=== PATIENT | female | born 1950 | race Caucasian/White ===

== ENCOUNTER 2019-05-30 08:06 | Emergency (ER) | payer MEDICARE ==
[2019-05-30] MEDS ORDERED: SODIUM CHLORIDE 0.9% 1000ML 1,000 ML IV ONE (08:25)
[2019-05-30] MEDS ORDERED: DEXAMETHASONE SOD PHOSPHATE 10MG/ML 1ML VIAL ONE (08:31)
[2019-05-30] MEDS ORDERED: CEFTRIAXONE SODIUM 1 GM ONE (08:31)
[2019-05-30] MEDS ORDERED: IPRATROPIUM/ALBUTEROL SULFATE 3 ML SOLUTION IH ONE (08:34)
[2019-05-30 08:44] LABS: CREATININE 0.7 mg/dL (0.5-1.5); POTASSIUM 3.3 mmol/L (3.5-5.1)
[2019-05-30 08:46] LABS: BASOPHILS % (AUTO) 0.7 % (0.0-5.0); EOSINOPHILS % (AUTO) 1.9 % (0.0-8.0); HEMATOCRIT 39.2 % (36-48); LYMPHOCYTES % (AUTO) 15.6 % (21.0-51.0); MEAN CORPUSCULAR HEMOGLOBIN 30.1 pg (27.0-33.0); MEAN CORPUSCULAR HGB CONC 33.7 g/dL (32.0-36.0); MEAN CORPUSCULAR VOLUME 89.5 fL (79-99); MONOCYTES % (AUTO) 10.1 % (3.0-13.0); NEUTROPHILS % (AUTO) 71.4 % (40.0-77.0); PLATELET COUNT (AUTO) 224 K/uL (130-400); RED BLOOD CELL COUNT(AUTO) 4.38 MIL/uL (4.00-5.50); RED CELL DISTRIBUTION WIDTH 12.7 % (11.0-15.5); WHITE BLOOD COUNT (AUTO) 5.8 K/uL (4.8-10.8)
== END 2019-05-30 10:20 | disposition home or self-care (01) ==
LOC: EDH 08:06
DX: J20.9 Acute bronchitis, unspecified (principal); I10 Essential (primary) hypertension; E78.00 Pure hypercholesterolemia, unspecified; Z90.49 Acquired absence of other specified parts of digestive tract; Z90.710 Acquired absence of both cervix and uterus; Z72.0 Tobacco use
CPT/HCPCS: 36415; 71046; 80048; 85025; 87804 ×2; 94640; 96374; 96375; 99284; J0696; J1100; J7030

== ENCOUNTER 2020-02-28 10:39 | Emergency (ER) | payer MEDICARE ==
[2020-02-28] MEDS ORDERED: ASPIRIN 325 MG TABLET ONE ×2 (11:07→12:26)
[2020-02-28 11:18] LABS: BASOPHILS % (AUTO) 0.6 % (0.0-5.0); EOSINOPHILS % (AUTO) 0.9 % (0.0-8.0); HEMATOCRIT 39.1 % (36-48); LYMPHOCYTES % (AUTO) 25.1 % (21.0-51.0); MEAN CORPUSCULAR HEMOGLOBIN 31.2 pg (27.0-33.0); MEAN CORPUSCULAR VOLUME 91.8 fL (79-99); MONOCYTES % (AUTO) 5.8 % (3.0-13.0); NEUTROPHILS % (AUTO) 67.3 % (40.0-77.0); PLATELET COUNT (AUTO) 286 K/uL (130-400); RED BLOOD CELL COUNT(AUTO) 4.26 MIL/uL (4.00-5.50); RED CELL DISTRIBUTION WIDTH 12.2 % (11.0-15.5); WHITE BLOOD COUNT (AUTO) 6.5 K/uL (4.8-10.8)
[2020-02-28 11:26] LABS: INR 0.94 (0.85-1.15); PARTIAL THROMBOPLASTIN TIME 20.2 SEC (26.3-35.5); PROTHROMBIN TIME 10.2 SEC (9.6-11.6)
[2020-02-28 11:43] LABS: ALBUMIN 3.7 g/dL (3.5-5.0); BILIRUBIN,TOTAL 0.5 mg/dL (0.2-1.0); CREATININE 0.8 mg/dL (0.5-1.5); TOTAL PROTEIN, SERUM 6.9 g/dL (6.0-8.3)
[2020-02-28 11:47] LABS: POTASSIUM 2.9 mmol/L (3.5-5.1)
[2020-02-28 12:17] LABS: APPEARANCE,URINE Clear (CLEAR); BILIRUBIN,URINE Negative (NEGATIVE); COLOR,URINE Yellow (YELLOW); GLUCOSE, URINE (UA) Negative (NEGATIVE); KETONES,URINE Negative (NEGATIVE); LEUKOCYTE ESTERASE ,URINE Negative (NEGATIVE); NITRATE,URINE Negative (NEGATIVE); OCCULT BLOOD,URINE Negative (NEGATIVE); PROTEIN,URINE Negative (NEGATIVE); UROBILINOGEN,URINE 0.2 mg/dL (0.2-1.0)
[2020-02-28] MEDS ORDERED: POTASSIUM CHLORIDE 20 MEQ ERTAB PO ONE (12:27)
[2020-02-28] MEDS ORDERED: POTASSIUM BICARB/CIT AC 25 MEQ TABLET.EFF ONE (12:28)
== END 2020-02-28 13:19 | disposition home or self-care (01) ==
LOC: EDH 10:39
DX: R00.2 Palpitations (principal); E78.00 Pure hypercholesterolemia, unspecified; E87.6 Hypokalemia; I10 Essential (primary) hypertension; Z90.49 Acquired absence of other specified parts of digestive tract; Z90.710 Acquired absence of both cervix and uterus; Z87.891 Personal history of nicotine dependence
CPT/HCPCS: 36415; 71045; 80053; 81003; 82550; 84484; 85025; 85610; 85730; 93005

== ENCOUNTER 2022-07-08 10:12 | Emergency (ER) | payer MEDICARE ==
[~2022-07-08] VITALS: Ht 157.5 cm; Wt 59.4 kg
[2022-07-08] MEDS ORDERED: ACETAMINOPHEN WITH CODEINE 1 TAB TAB PO ONE (12:00)
[2022-07-08] MEDS ORDERED: MORPHINE 4 MG SYG IM ONE (12:30)
[2022-07-08] MEDS ORDERED: TRAM50TA4 PO (12:35)
[2022-07-08 12:46] VITALS: BP 113/83
== END 2022-07-08 13:11 | disposition home or self-care (01) ==
LOC: EDH 10:12
DX: S92.252A Displaced fracture of navicular [scaphoid] of left foot, initial encounter for closed fracture (principal); S52.122A Displaced fracture of head of left radius, initial encounter for closed fracture; W19.XXXA Unspecified fall, initial encounter; Y93.89 Activity, other specified; Y92.89 Other specified places as the place of occurrence of the external cause; Y99.8 Other external cause status; I10 Essential (primary) hypertension; E78.00 Pure hypercholesterolemia, unspecified; H40.9 Unspecified glaucoma
CPT/HCPCS: 99284; 29105; 73100 ×2; 73070 ×2; 73090; 96372; J2270

== ENCOUNTER → 2023-07-26 | Outpatient (CLI) | payer MEDICARE ==
[~2023-07-26] MED LIST: TRAM50TA4 PO
== END | disposition home or self-care (01) ==
LOC: SHCH 10:48
PROVIDERS: ATTEND Internal Medicine Cardiovascular Disease
DX: I35.8 Other nonrheumatic aortic valve disorders (principal); R07.9 Chest pain, unspecified
CPT/HCPCS: 93306

== ENCOUNTER → 2023-08-10 | Outpatient (CLI) | payer MEDICARE ==
[2023-08-10] MEDS: REGADENOSON 0.4 MG/5 ML PF SYG IVP ONE (15:08)
== END | disposition home or self-care (01) ==
LOC: SHCH 09:26
PROVIDERS: ATTEND Internal Medicine Cardiovascular Disease
DX: R07.9 Chest pain, unspecified (principal)
CPT/HCPCS: 78452; 96374; 93017; J2785; A9500 ×2

== ENCOUNTER 2024-05-17 11:39 | Emergency (ER) | payer MEDICARE ==
[~2024-05-17] VITALS: Ht 160 cm; Wt 68.0 kg
--- NOTE | 2024-05-17 12:34 | ERN ---
General Stated Complaint: RIGHT EYE DISCOMFORT Time Seen by MD: 11:40 Time Seen by Midlevel: 11:40 Source: patient History of Present Illness Initial Comments The patient is a 73-year-old female presenting to the emergency department for an eye examination. The patient states she had a cataract surgery six days ago. This morning she woke up with a small amount of discomfort to the area and rub the eye which concerned her so she decided to report to the ER for further evaluation. Patient was no other complaints at this time Allergies: Coded Allergies: No Known Drug Allergies (Unverified Allergy, Unknown, 07/08/22) Home Meds Active Scripts Tramadol Hcl (Tramadol HCl) 50 Mg Tablet, 50 MG PO TID for 7 Days, #21 TAB 0 Refills Prov:GISELA CHAVIS MD 07/08/22 Past Medical History Past Medical History: Glaucoma, High Cholesterol, Hypertension Past Surgical History: None Family History Family History: Negative ROS Dictation CONSTITUTIONAL: NEGATIVE EXCEPT FOR HPI HEAD/FACE: NEGATIVE EXCEPT FOR HPI EENT: NEGATIVE EXCEPT FOR HPI RESPIRATORY: NEGATIVE EXCEPT FOR HPI GASTROINTESTINAL/ABDOMINAL: NEGATIVE EXCEPT FOR HPI GENITOURINARY: NEGATIVE EXCEPT FOR HPI MUSCULOSKELETAL: NEGATIVE EXCEPT FOR HPI INTEGUMENTARY: NEGATIVE EXCEPT FOR HPI NEUROLOGICAL/PSYCH: NEGATIVE EXCEPT FOR HPI HEMATOLOGIC/LYMPHATIC: NEGATIVE EXCEPT FOR HPI ALL SYSTEMS NEGATIVE, EXCEPT NOTED ABOVE. 13 POINT REVIEW OF SYSTEMS ASSESSED AND ALL NEGATIVE EXCEPT FOR ABOVE. Physical Exam Physical Exam Dictation PHYSICAL EXAM: GENERAL: alert,, awake oriented x 3 HEENT: EOMI, Sclera non icteric, moist mucosa NECK: Supple, no JVD, trachea midline LUNGS: Clear breath sounds bilaterally. No wheezes HEART: Regular rate and rhythm. Normal S1 and S2, without murmurs ABD: Abdomen soft, nontender. Bowel sounds present EXT: No clubbing or cyanosis, NEURO: Alert and oriented to person, follows commands MDM MDM: Differential diagnosis: Postop pain, conjunctivitis, corneal abrasion There are no social concerns with this patient. Prescription drug management Prescriptions will include: None Medical management and examination interpretation discussions were had by me with other qualified healthcare professionals as indicated for the patient's care. ED Course Orders Procedure Category Date Status Time Tetracaine Hcl PHA 05/17/24 In Process (Pontocaine 0.5% 12:30 *Nursing CPOE 05/17/24 Verified Communication: 12:51 Current Medications Medications (Trade) Dose Ordered Sig/Arlene Route PRN Reason Start Time Stop Time Status Last Admin Dose Admin Tetracaine HCl (Pontocaine 0.5% Ophth Soln) 1 OR 2 DROPS ONCE OP 05/17/24 12:30 06/16/24 12:29 DX & DISP Disposition: Discharge Departure Impression: Primary Impression: Pain of right eye Condition: Stable Additional Instructions: You will need to follow up with your cryptologic support specialist for further evaluation. Referrals: RYLEY CHRISTOPHER COORDINATE MEASURING EQUIPMENT OPERATOR (PCP) Time of Disposition: 12:52 I have reviewed the case, and I agree with, Diagnosis and Plan I performed the substantive portion of the visit. I have reviewed and personally made and approve the management plan that is documented in the note by myself or the BRENDAN. I acknowledge for responsibility for the patient's management plan. MAME MALDONADO May 17, 2024 12:34
[2024-05-17 14:13] VITALS: BP 132/52; PULSE 78; RESP 18; TEMP 97.8; O2SAT 96
[2024-05-17] MEDS: TETRACAINE HCL 0.5% 4 ML OPHTH SOLN OP SCH (14:13)
== END 2024-05-17 14:17 | disposition home or self-care (01) ==
LOC: EDH 11:39
DX: H57.11 Ocular pain, right eye (principal); E78.00 Pure hypercholesterolemia, unspecified; I10 Essential (primary) hypertension
CPT/HCPCS: 99283